=== PATIENT | female | born 1960 | race African-American/Black ===

== ENCOUNTER → 2017-05-09 | Outpatient (CLI) | payer OTHER ==
[~2017-05-09] MED LIST: ATOR10TA PO; BUPR150T15 PO; CALC-112 PO; ESTR0.5T PO; METF500T4 PO; MONT4GRA2 PO
--- NOTE | 2017-05-09 11:21 | RAD ---
Indication: Microscopic hematuria. Technique: Retroperitoneal ultrasound was performed. No comparison is available. Findings: Right kidney measures at least 11.4 cm in length and the left 11.2 cm. There is no hydronephrosis or renal mass. Bladder is normal in appearance without significant post void residual. Aorta is normal caliber. IVC is patent. Impression: Normal renal ultrasound.
== END | disposition home or self-care (01) ==
LOC: US 10:18
PROVIDERS: ATTEND Urology
DX: R31.29 Other microscopic hematuria (principal)
CPT/HCPCS: 76770

== ENCOUNTER 2018-03-14 21:30 | Emergency (ER) | payer OTHER ==
[~2018-03-14] VITALS: Ht 165.1 cm; Wt 79.4 kg
[~2018-03-14 21:30] MED LIST changes: +METF500T16 PO; -METF500T4 PO
[2018-03-14 22:18] LABS: BASO # 0.1 x10^3/uL (0.0-0.2); BASO % 1 % (0-3); EOS # 0.2 x10^3/uL (0.0-0.7); EOS % 3 % (0-3); HEMATOCRIT 41.1 % (36.0-47.0); LYMPH # 3.3 x10^3/uL (1.0-4.8); LYMPH % 54 % (24-48); MEAN CORPUSCULAR HEMOGLOBIN 30 pg (25-35); MEAN CORPUSCULAR HGB CONC 34 g/dL (31-37); MEAN CORPUSCULAR VOLUME 89 fL (79-100); MONO # 0.5 x10^3/uL (0.0-1.1); MONO % 9 % (0-9); NEUT # 2.1 x10^3uL (1.8-7.7); NEUT % 34 % (31-73); PLATELET COUNT 328 x10^3/uL (140-400); RED BLOOD COUNT 4.61 x10^6/uL (3.50-5.40); WHITE BLOOD COUNT 6.1 x10^3/uL (4.0-11.0)
[2018-03-14 22:29] LABS: ALBUMIN 3.8 g/dL (3.4-5.0); ALBUMIN/GLOBULIN RATIO 1.3 (1.0-1.7); CALCIUM 8.9 mg/dL (8.5-10.1); CREATININE 1.1 mg/dL (0.6-1.0); GFR 61.5; POTASSIUM 3.9 mmol/L (3.5-5.1); TOTAL BILIRUBIN 0.2 mg/dL (0.2-1.0); TOTAL PROTEIN 6.7 g/dL (6.4-8.2)
[2018-03-14] MEDS ORDERED: KETOROLAC 15 MG/ML VIAL. IV ONE (22:30)
[2018-03-14] MEDS ORDERED: FAMOTIDINE 20 MG/2 ML VIAL IVP ONE (23:30)
[2018-03-14] MEDS ORDERED: LIDO:MAALOX 1:1 20 ML SINGLE DOSE. PO ONE (23:30)
[2018-03-15] MEDS ORDERED: IOHEXOL 300 MG/ML 75 ML VIAL. IV ONE (00:30)
[2018-03-15] MEDS ORDERED: CONTRAST GIVEN MC PRN (00:30)
--- NOTE | 2018-03-15 01:44 | RAD ---
INDICATION: Omni 300 75cc: Left sided chest and abdomen pain COMPARISON: None. TECHNIQUE: Axial CT images obtained through the chest, abdomen and pelvis with contrast. Three-dimensional images processed of the chest per protocol One or more of the following individualized dose reduction techniques were utilized for this examination: 1. Automated exposure control; 2. Adjustment of the mA and/or kV according to patient size; 3. Use of iterative reconstruction technique. FINDINGS: Chest: No evidence of pneumothorax. Sub-4 mm right lung nodule. No focal airspace consolidation to suggest pneumonia. No thoracic aortic aneurysm. Degenerative changes of the spine. No central pulmonary embolus. Some limitation peripherally secondary to mild motion. Abdomen and pelvis: Abdominal aorta is not grossly aneurysmal. No intrahepatic bile duct dilation. Subcentimeter low-density liver lesion near hepatic dome, too small to characterize. Gallbladder partially contracted. No peripancreatic fluid collection. Spleen unremarkable. No left-sided hydronephrosis. Urinary bladder is partially distended. No right-sided hydronephrosis. No periappendiceal inflammation. No dilated loops of bowel to suggest obstruction. Degenerative changes spine. IMPRESSION: 1. No central pulmonary embolus. 2. Sub-4 mm right lung nodule. 3. No evidence of bowel obstruction or appendicitis. 4. Subcentimeter low-density lesion near hepatic dome which is too small to characterize. Commonly seen finding. Fleischner Society recommendations for solitary solid lung nodule follow up.: In a low risk patient: <6mm - No follow up required. 6-8mm - 6-[address], then CT at 18-24 months. >8mm - CT at 3 months, PET/CT or tissue sampling. In a high risk patient (history of smoking or other known risk factors): <6mm - Follow up CT at 12 months. 6-8mm - 6-[address], then CT at 18-24 months. >8mm - CT at 3 months, PET/CT or tissue sampling. Fleischner Society recommendations for multiple solid lung nodule follow up.: In a low risk patient: <6mm - No follow up required. 6-8mm - 3-[address], then CT at 18-24 months. >8mm - CT at 3-6 months, then at 18-24 months. PET/CT or tissue sampling based on most suspicious nodule. In a high risk patient (history of smoking or other known risk factors): <6mm - Follow up CT at 12 months. 6-8mm - 3-[address], then CT at 18-24 months. >8mm - CT at 3-6 months, PET/CT or tissue sampling option based on most suspicious nodule. Electronically signed by: Abdelrahman Ellis MD (03/15/2018 1:41 AM) [facility]
[2018-03-15 01:53] VITALS: BP 138/78
--- NOTE | 2018-03-15 01:58 | ED.ADGEN ---
Past History Past Medical History: No Pertinent History Past Surgical History: No Surgical History Alcohol Use: Occasionally Drug Use: None Adult General Chief Complaint Chief Complaint Left-sided chest pain HPI HPI Patient is a 37-year-old female with history of acid reflux and asthma who presents with left lower chest pain located under her left breast radiating to left shoulder and left arm. Pain is described as sharp and lasts for seconds at its timing occurs every 20-30 minutes. It is not as worse with deep breathing or movement. Patient does report associated nausea. Denies fever chills, sweats. No cough, sore throat. No history of CAD, hypertension, dyslipidemia or diabetes. Patient is a nonsmoker. No family history of early heart disease. Denies abdominal pain, constipation diarrhea bloody stools. No other acute symptoms or complaints.[] Review of Systems Review of Systems Review symptoms as per history of present illness. All other review symptoms are negative. All other systems were reviewed and found to be within normal limits, except as documented in this note. Current Medications Current Medications Current Medications Medications (Trade) Dose Ordered Sig/Izzy Start Time Stop Time Status Last Admin Dose Admin Famotidine (Pepcid Vial) 20 mg 1X ONCE 03/14/18 23:30 03/14/18 23:32 DC 03/14/18 23:38 20 MG Fentanyl Citrate (Fentanyl 2ml Vial) 50 mcg 1X ONCE 03/15/18 01:15 03/15/18 01:19 DC Info (Do NOT chart on this entry -- for MONITORING) 1 each PRN DAILY PRN 03/15/18 00:30 03/17/18 00:29 Iohexol (Omnipaque 300 Mg/ml) 75 ml 1X ONCE 03/15/18 00:30 03/15/18 00:31 DC 03/15/18 00:27 75 ML Ketorolac Tromethamine (Toradol 15mg Vial) 15 mg 1X ONCE 03/14/18 22:30 03/14/18 22:32 DC 03/14/18 22:30 15 MG Multi-Ingredient Mouthwash/Gargle (Gi Cocktail) 20 ml 1X ONCE 03/14/18 23:30 03/14/18 23:32 DC 03/14/18 23:38 20 ML Allergies Allergies Allergies Coded Allergies Type Severity Reaction Last Updated Verified amoxicillin Allergy Unknown 01/22/16 No clavulanic acid Allergy Unknown 01/22/16 No tramadol Allergy Unknown 01/22/16 No Uncoded Allergies Type Severity Reaction Last Updated Verified ASPRIN Allergy Unknown 01/22/16 ZOFRAN Allergy Unknown 01/22/16 Physical Exam Physical Exam Constitutional: Well developed, well nourished, no acute distress, non-toxic appearance. [] HENT: Normocephalic, atraumatic, bilateral external ears normal, oropharynx moist, no oral exudates, nose normal. [] Eyes: PERRLA, EOMI, conjunctiva normal, no discharge. [] Neck: Normal range of motion, no tenderness, supple, no stridor. [] Cardiovascular:Heart rate regular rhythm, no murmur [] Lungs & Thorax: Bilateral breath sounds clear to auscultation [] Abdomen: Bowel sounds normal, soft, no tenderness. [] Skin: Warm, dry, no erythema, no rash. [] Back: No tenderness, no CVA tenderness. [] Extremities: No tenderness, no cyanosis, no clubbing, ROM intact, no edema. [] Neurologic: Alert and oriented X 3, normal motor function, normal sensory function, no focal deficits noted. [] Psychologic: Affect normal, judgement normal, mood normal. [] Current Patient Data Vital Signs Vital Signs Date Time Temp Pulse Resp B/P (MAP) Pulse Ox O2 Delivery O2 Flow Rate FiO2 03/15/18 00:43 52 20 135/85 (102) 100 Room Air 03/14/18 21:46 97.9 Lab Results Laboratory Tests Test 03/14/18 22:03 03/14/18 22:08 03/14/18 23:35 White Blood Count 6.1 x10^3/uL (4.0-11.0) Red Blood Count 4.61 x10^6/uL (3.50-5.40) Hemoglobin 14.0 g/dL (12.0-15.5) Hematocrit 41.1 % (36.0-47.0) Mean Corpuscular Volume 89 fL (79-100) Mean Corpuscular Hemoglobin 30 pg (25-35) Mean Corpuscular Hemoglobin Concent 34 g/dL (31-37) Red Cell Distribution Width 13.0 % (11.5-14.5) Platelet Count 328 x10^3/uL (140-400) Neutrophils (%) (Auto) 34 % (31-73) Lymphocytes (%) (Auto) 54 % (24-48) H Monocytes (%) (Auto) 9 % (0-9) Eosinophils (%) (Auto) 3 % (0-3) Basophils (%) (Auto) 1 % (0-3) Neutrophils # (Auto) 2.1 x10^3uL (1.8-7.7) Lymphocytes # (Auto) 3.3 x10^3/uL (1.0-4.8) Monocytes # (Auto) 0.5 x10^3/uL (0.0-1.1) Eosinophils # (Auto) 0.2 x10^3/uL (0.0-0.7) Basophils # (Auto) 0.1 x10^3/uL (0.0-0.2) D-Dimer (Xiomara) 0.23 mg/L (0.00-0.50) Sodium Level 141 mmol/L (136-145) Potassium Level 3.9 mmol/L (3.5-5.1) Chloride Level 108 mmol/L (98-107) H Carbon Dioxide Level 24 mmol/L (21-32) Anion Gap 9 (6-14) Blood Urea Nitrogen 16 mg/dL (7-20) Creatinine 1.1 mg/dL (0.6-1.0) H Estimated GFR (Cockcroft-Gault) 61.5 BUN/Creatinine Ratio 15 (6-20) Glucose Level 134 mg/dL (70-99) H Calcium Level 8.9 mg/dL (8.5-10.1) Total Bilirubin 0.2 mg/dL (0.2-1.0) Aspartate Amino Transferase (AST) 20 U/L (15-37) Alanine Aminotransferase (ALT) 33 U/L (14-59) Alkaline Phosphatase 89 U/L (46-116) Troponin I Quantitative < 0.017 ng/mL (0-0.055) < 0.017 ng/mL (0-0.055) Total Protein 6.7 g/dL (6.4-8.2) Albumin 3.8 g/dL (3.4-5.0) Albumin/Globulin Ratio 1.3 (1.0-1.7) Lipase 109 U/L (73-393) EKG EKG [EKG: No acute disease on preliminary ED review.] Radiology/Procedures Radiology/Procedures [CT chest/CT abdomen pelvis: No acute disease per radiology report] Course & Med Decision Making Course & Med Decision Making Pertinent Labs and Imaging studies reviewed. (See chart for details) [Patient reports some relief with Pepcid and GI cocktail. EKG, repeat troponin nondiagnostic. Chest pains nonexertional. She does have history of severe reflux disease and is taking Protonix. Will increase Protonix, take Tylenol for pain and follow-up with PCP for reevaluation. Return precautions reviewed. Patient verbalizes understanding agreement discharge instructions prior to departure.] Final Impression Final Impression [1. Chest pain 2. Abdominal pain] Dragon Disclaimer Dragon Disclaimer This electronic medical record was generated, in whole or in part, using a voice recognition dictation system. NATE BEVERLY DO Mar 15, 2018 01:57
--- NOTE | 2018-03-15 05:43 | EKG ---
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
--- NOTE | 2018-03-15 08:15 | RAD ---
CHEST AP ONLY INDICATION: Chest pain COMPARISON: CT chest dated 01/22/2016 FINDINGS: Normal lung volume. No focal consolidation. Remote granulomatous disease. Normal pulmonary vasculature. No pleural effusion or pneumothorax. The cardiomediastinal silhouette and great vessels are normal. No acute osseous abnormality. IMPRESSION: No acute cardiopulmonary process. Electronically signed by: Daniel Aquino MD (03/15/2018 8:12 AM) [facility]
== END 2018-03-15 02:08 | disposition home or self-care (01) ==
LOC: ER 21:30
DX: R07.89 Other chest pain (principal); K21.9 Gastro-esophageal reflux disease without esophagitis; J45.909 Unspecified asthma, uncomplicated; Z88.1 Allergy status to other antibiotic agents; Z88.6 Allergy status to analgesic agent
CPT/HCPCS: 36415; 71045; 71275; 74177; 80053; 83690; 84484; 85025; 85379; 93005; 96374; 96375; 99285; J1885; Q9967; S0028

== ENCOUNTER 2020-01-31 17:52 | Observation (INO) | payer OTHER ==
[~2020-01-31] VITALS: Ht 165.1 cm; Wt 81.2 kg
[2020-01-31] MEDS ORDERED: ASPIRIN CHEWABLE 81 MG TABLET. ONE (18:09)
[2020-01-31] MEDS ORDERED: ONDANSETRON ODT 4 MG TAB.RAPDIS ONE (18:09)
[2020-01-31] MEDS ORDERED: NITROGLYCERIN SUBLINGUAL 0.4 MG BOTTLE OF 25. SL PRN ×2 (18:15→19:45)
--- NOTE | 2020-01-31 18:19 | PHYS DOC ---
Past History Past Medical History: Hypertension Past Surgical History: No Surgical History Smoking: Non-smoker Alcohol Use: Occasionally Drug Use: None Adult General Chief Complaint Chief Complaint: CHEST PAIN HPI HPI Patient is a 59-year-old female who presents for chest pain. Patient reports left arm paresthesias and numbness x3 days. Reports onset of substernal chest pain which is 8 out of 10 in severity and radiates to left upper extremity and neck 2 hours prior to arrival while visiting in hospital. She denies any history of CAD, no tobacco use but admits increased stress as is currently hospitalized at [facility]. She has never felt anything like this before. Associated symptoms include neck pain, lightheadedness, shortness of breath, and nausea. Patient denies any fever, COVID-19 contact, constitutional symptoms, hemoptysis, history of blood clots, calf tenderness, or long distance travel. Patient does admit use of exogenous estrogen and living a sedentary lifestyle Review of Systems Review of Systems Fourteen body systems of review of systems have been reviewed. See HPI for pertinent positives and negative responses, other augustin all other systems are negative, non-pertinent or non-contributory Current Medications Current Medications Current Medications Medications (Trade) Dose Ordered Sig/Izzy Start Time Stop Time Status Last Admin Dose Admin Aspirin (Aspirin Chewable) 81 mg STK-MED ONCE 01/31/20 18:09 01/31/20 18:10 DC Ondansetron HCl (Zofran Odt) 4 mg STK-MED ONCE 01/31/20 18:09 01/31/20 18:10 DC Allergies Allergies Allergies Coded Allergies Type Severity Reaction Last Updated Verified amoxicillin Allergy Unknown 01/22/16 No clavulanic acid Allergy Unknown 01/22/16 No tramadol Allergy Unknown 01/22/16 No Uncoded Allergies Type Severity Reaction Last Updated Verified ASPRIN Allergy Unknown 01/22/16 ZOFRAN Allergy Unknown 01/22/16 Physical Exam Physical Exam Constitutional: Well developed, well nourished, moderate distress, non-toxic appearance. HENT: Normocephalic, atraumatic, bilateral external ears normal, oropharynx moist, no oral exudates, nose normal. Eyes: PERRLA, EOMI, conjunctiva normal, no discharge. Neck: Normal range of motion, no tenderness, supple, no stridor. Cardiovascular: Heart rate regular, sinus rhythm, no murmurs rubs or gallops Lungs & Thorax: Bilateral breath sounds clear to auscultation Abdomen: Bowel sounds normal, soft, no tenderness, no masses, no pulsatile masses. Nonsurgical abdomen, no peritoneal signs Skin: Warm, dry, no erythema, no rash. Back: No tenderness, no CVA tenderness. Extremities: No tenderness, no cyanosis, no clubbing, ROM intact, no edema. Neurologic: Alert and oriented X 3, grossly normal motor & sensory function, no focal deficits noted. Psychologic: Affect normal, judgement normal, anxious mood Current Patient Data Vital Signs Vital Signs Date Time Temp Pulse Resp B/P (MAP) Pulse Ox O2 Delivery O2 Flow Rate FiO2 01/31/20 19:30 18 Room Air 01/31/20 19:23 98.1 86 179/105 (129) 99 Lab Results Laboratory Tests Test 01/31/20 18:15 White Blood Count 7.1 x10^3/uL (4.0-11.0) Red Blood Count 4.33 x10^6/uL (3.50-5.40) Hemoglobin 13.2 g/dL (12.0-15.5) Hematocrit 38.8 % (36.0-47.0) Mean Corpuscular Volume 90 fL (79-100) Mean Corpuscular Hemoglobin 30 pg (25-35) Mean Corpuscular Hemoglobin Concent 34 g/dL (31-37) Red Cell Distribution Width 12.7 % (11.5-14.5) Platelet Count 330 x10^3/uL (140-400) Neutrophils (%) (Auto) 36 % (31-73) Lymphocytes (%) (Auto) 53 % (24-48) Monocytes (%) (Auto) 8 % (0-9) Eosinophils (%) (Auto) 2 % (0-3) Basophils (%) (Auto) 1 % (0-3) Neutrophils # (Auto) 2.5 x10^3uL (1.8-7.7) Lymphocytes # (Auto) 3.8 x10^3/uL (1.0-4.8) Monocytes # (Auto) 0.6 x10^3/uL (0.0-1.1) Eosinophils # (Auto) 0.2 x10^3/uL (0.0-0.7) Basophils # (Auto) 0.1 x10^3/uL (0.0-0.2) Prothrombin Time 9.9 SEC (9.4-11.4) Prothromb Time International Ratio 1.0 (0.9-1.1) Activated Partial Thromboplast Time 24 SEC (23-33) D-Dimer (Xiomara) 0.30 mg/L (0.00-0.50) Sodium Level 145 mmol/L (136-145) Potassium Level 3.9 mmol/L (3.5-5.1) Chloride Level 109 mmol/L (98-107) Carbon Dioxide Level 26 mmol/L (21-32) Anion Gap 10 (6-14) Blood Urea Nitrogen 16 mg/dL (7-20) Creatinine 0.9 mg/dL (0.6-1.0) Estimated GFR (Cockcroft-Gault) 77.0 BUN/Creatinine Ratio 18 (6-20) Glucose Level 109 mg/dL (70-99) Calcium Level 9.2 mg/dL (8.5-10.1) Magnesium Level 1.8 mg/dL (1.8-2.4) Total Bilirubin 0.2 mg/dL (0.2-1.0) Aspartate Amino Transf (AST/SGOT) 23 U/L (15-37) Alanine Aminotransferase (ALT/SGPT) 43 U/L (14-59) Alkaline Phosphatase 94 U/L (46-116) Creatine Kinase 166 U/L (26-192) Troponin I Quantitative 0.028 ng/mL (0-0.055) KS-Mys-Z-Type Natriuretic Peptide 216 pg/mL (0-124) Total Protein 6.8 g/dL (6.4-8.2) Albumin 3.7 g/dL (3.4-5.0) Albumin/Globulin Ratio 1.2 (1.0-1.7) Lipase 71 U/L (73-393) EKG EKG EKG ordered and interpreted by myself at 1815 hrs. as sinus rhythm at 79 bpm, prolonged QTC at 471 otherwise intervals unremarkable, no axis deviation, T wave inversions in inferior leads II, aVF, and anterolateral leads V3 through V6. No prior EKG to compare to Radiology/Procedures Radiology/Procedures PROCEDURE: PORTABLE CHEST 1V PORTABLE CHEST 1V 01/31/2020 6:14 PM INDICATION: Chest pain COMPARISON: 03/14/2018 TECHNIQUE: Portable frontal view of the chest is provided. FINDINGS: The cardiomediastinal silhouette is within normal limits. Lungs are clear. There are no significant pleural effusions. There is no pulmonary vascular congestion. No pneumothorax. No suspicious osseous abnormality. IMPRESSION: There is no acute cardiopulmonary process. Electronically signed by: Lauren Plascencia MD (01/31/2020 6:38 PM) [facility] Course & Med Decision Making Course & Med Decision Making Ambulatory patient seen on immediate ER arrival Airway patent, breathing unlabored, patient hypertensive otherwise remaining vitals unremarkable. IV access obtained Calm presence of history and physical exam obtained with subsequent ordering of diagnostic studies A total of x3 sublingual nitro administered with improvement in pain from 8-->5/10 in severity. 4 mg morphine subsequently administered with further relief in symptoms Discussed ER visit, grossly non-concerning for any emergent or surgical pathology but patient has high risk for potential cardiac events, I recommended admission for further cardiac monitoring and further diagnostic cardiac testing, patient amenable On-call hospitalist, Dr. Mcintosh, contacted and case discussed. He was agreeable to admission with cardiology consultation and likely nuclear stress test to be formed tomorrow morning I updated patient of this decision, she was amenable All questions and concerns addressed prior to ER departure to [facility] for further medical observation and management Dragon Disclaimer Dragon Disclaimer This electronic medical record was generated, in whole or in part, using a voice recognition dictation system. The HEART Score for CP Pts HEART Score for Chest Pain: HEART Score for Chest Pain Response (Comments) Value History Moderately Suspicious [address] Depression 2 Age >45 - < 65 1 Risk Factors 1 or 2 Risk Factors 1 Troponin < Normal Limit 0 Total 5 Risk Factors: Risk Factors: DM, Current or recent (<one month) smoker, HTN, HLP, family history of CAD, obesity. Risk Scores: Score 0 - 3: 2.5% MACE over next 6 weeks - Discharge Home Score 4 - 6: 20.3% MACE over next 6 weeks - Admit for Clinical Observation Score 7 - 10: 72.7% MACE over next 6 weeks - Early Invasive Strategies PERC Rule for PE PERC Rule for PE Response (Comments) Value Age > 50: Yes 1 HR > 100: No 0 Sa02 on room air <95%: No 0 Unilateral leg swelling: No 0 Hemoptysis: No 0 Recent surgery or trauma: No 0 Prior PE or DVT: No 0 Hormone use: Yes (Reports being off this for past 3 months) 1 Total 2 Departure Departure: Impression: Primary Impression: Chest pain, rule out acute myocardial infarction Additional Impression: HTN (hypertension) Disposition: 09 ADMITTED INPATIENT Admitting Physician: Dwayne Mcintosh Condition: STABLE Referrals: JOSE MANUEL ACHARYA QUALITY CONTROLLER (PCP) Justification of Admission: Justification of Admission: Justification of Admission Dx: Yes (High risk chest pain heart score greater than 3, EKG abnormalities) Problem Qualifiers SUNNY HUOSE DO Jan 31, 2020 18:19
--- NOTE | 2020-01-31 18:25 | EKG ---
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
[2020-01-31 18:39] LABS: BASO # 0.1 x10^3/uL (0.0-0.2); BASO % 1 % (0-3); EOS # 0.2 x10^3/uL (0.0-0.7); EOS % 2 % (0-3); HEMATOCRIT 38.8 % (36.0-47.0); HEMOGLOBIN 13.2 g/dL (12.0-15.5); LYMPH # 3.8 x10^3/uL (1.0-4.8); LYMPH % 53 % (24-48); MEAN CORPUSCULAR HEMOGLOBIN 30 pg (25-35); MEAN CORPUSCULAR HGB CONC 34 g/dL (31-37); MEAN CORPUSCULAR VOLUME 90 fL (79-100); MONO # 0.6 x10^3/uL (0.0-1.1); MONO % 8 % (0-9); NEUT # 2.5 x10^3uL (1.8-7.7); NEUT % 36 % (31-73); PLATELET COUNT 330 x10^3/uL (140-400); RED BLOOD COUNT 4.33 x10^6/uL (3.50-5.40); RED CELL DISTRIBUTION WIDTH 12.7 % (11.5-14.5); WHITE BLOOD COUNT 7.1 x10^3/uL (4.0-11.0)
--- NOTE | 2020-01-31 18:41 | RAD ---
PORTABLE CHEST 1V 01/31/2020 6:14 PM INDICATION: Chest pain COMPARISON: 03/14/2018 TECHNIQUE: Portable frontal view of the chest is provided. FINDINGS: The cardiomediastinal silhouette is within normal limits. Lungs are clear. There are no significant pleural effusions. There is no pulmonary vascular congestion. No pneumothorax. No suspicious osseous abnormality. IMPRESSION: There is no acute cardiopulmonary process. Electronically signed by: Lauren Plascencia MD (01/31/2020 6:38 PM) [facility]
[2020-01-31 18:47] LABS: CALCIUM 9.2 mg/dL (8.5-10.1); CREATININE 0.9 mg/dL (0.6-1.0); POTASSIUM 3.9 mmol/L (3.5-5.1)
[2020-01-31 18:58] LABS: ALBUMIN 3.7 g/dL (3.4-5.0); ALBUMIN/GLOBULIN RATIO 1.2 (1.0-1.7); MAGNESIUM 1.8 mg/dL (1.8-2.4); TOTAL BILIRUBIN 0.2 mg/dL (0.2-1.0); TOTAL PROTEIN 6.8 g/dL (6.4-8.2)
[2020-01-31] MEDS ORDERED: MORPHINE SULFATE 4 MG/ML DISP.SYRIN. IV ONE (19:45)
[2020-01-31] MEDS ORDERED: ACETAMINOPHEN 325 MG TABLET PO PRN (19:45)
[2020-01-31] MEDS ORDERED: METOPROLOL TART IMMED RELEASE 25 MG TABLET ONE (20:21)
--- NOTE | 2020-01-31 20:43 | NUR ---
Admission: The patient, SURENDRA DELAROSA, 59 y/o, F admitted by DIANA MCINTOSH MD, was given written information regarding hospital policies, unit procedures and contact persons. Pt arrived to room 121 via gurney, accompanied by [facility] and ED staff. Pt admitted to telemetry, observation status for Dx: CP, HTN. Pt A/Ox3, ambulatory. Pt placed on tele, showing SR with rate in the 70's, inverted T-waves noted. Initial troponin negative, serials ordered. Pt reports chest pain began 3 days ago accompanied by left arm numbness and tingling, worse today with substernal CP rated 8:10. Pt received nitro x3 and morphine 4mg IVP while in ED and now reports pain has improved to 4:10. Pt also reports recent life stress related to her being currently hospitalized at [facility]. Dr. Mcintosh notified of pt status, home meds reconciled. Will consult cardiology in AM. Discussed POC with pt, V/U. Call light in reach. Valuables were checked and logged. Belongings were left in room with pt.
[2020-01-31 20:45] VITALS: BP 141/86
[2020-01-31] MEDS ORDERED: METOPROLOL TART IMMED RELEASE 25 MG TABLET PO ONE (21:00)
[2020-01-31] MEDS: PATCH REMOVAL. MC SCH (21:00)
[2020-01-31] MEDS ORDERED: DICLOFENAC SODIUM 1% TOPICAL GEL 100GM TUBE. TP PRN (21:30)
[2020-01-31] MEDS ORDERED: SUMAtriptan SUCCINATE 50 MG TABLET PO PRN (21:30)
[2020-01-31] MEDS ORDERED: MONT10TA80 PO (21:31)
[2020-01-31] MEDS ORDERED: TOPI100T8 PO (21:31)
[2020-01-31] MEDS ORDERED: RABE20TA26 PO (21:31)
[2020-01-31] MEDS ORDERED: BUPR100T8 PO (21:31)
[2020-01-31] MEDS ORDERED: DICL100G18 TP (21:31)
[2020-01-31] MEDS ORDERED: LORA10TA3 PO (21:31)
[2020-01-31] MEDS ORDERED: SUMA100T3 PO (21:31)
[2020-01-31] MEDS ORDERED: ATOR40TA59 PO (21:31)
[2020-01-31] MEDS ORDERED: TRAZ-120 PO (21:31)
[2020-01-31] MEDS ORDERED: MIRA50TA PO (21:31)
[2020-01-31] MEDS ORDERED: ATORVASTATIN CALCIUM 20 MG TABLET PO SCH (21:54)
[2020-01-31] MEDS ORDERED: MONTELUKAST 10 MG TABLET. PO SCH (21:54)
[2020-01-31] MEDS ORDERED: metFORMIN 500 MG TABLET PO SCH (21:54)
[2020-01-31] MEDS ORDERED: traZODone 50 MG TABLET. PO SCH (21:55)
[2020-01-31] MEDS: TOPIRAMATE 100 MG TABLET. PO SCH (22:07)
[2020-01-31] MEDS: MORPHINE SULFATE 2 MG/ML DISP.SYRIN. IVP PRN (22:15)
[2020-01-31] MEDS ORDERED: DIPH25CA58 PO (22:26)
[2020-01-31] MEDS ORDERED: diphenhydrAMINE HCL 25 MG CAPSULE PO PRN (22:30)
[2020-01-31 23:34] VITALS: BP 114/66
--- NOTE | 2020-01-31 23:35 | NUR ---
Pt normally wears CPAP at night for sleep apnea, but did not bring machine from home. Placed on O2 at 2L via NC for HS.
--- NOTE | 2020-02-01 04:41 | NUR ---
Cardiology consult called to Miriam Fairbanks/[place] with answering service.
[2020-02-01 06:05] VITALS: BP 99/66
[2020-02-01] MEDS ORDERED: PANTOPRAZOLE 40 MG TABLET. PO SCH (07:30)
[2020-02-01] MEDS ORDERED: buPROPion SR 100 MG TABLET.SA. PO SCH (08:00)
--- NOTE | 2020-02-01 08:42 | PDOC2 ---
HERMILA GOLDSTEIN PALLET REPAIRER 02/01/20 0842: CARDIAC CONSULT DATE OF CONSULT DOS: DATE: 02/01/20 TIME: 08:37 REASON FOR CONSULT Reason for Consult Chest pain, HTN REFERRING PHYSICIAN Referring Physician Dr. Mcintosh SOURCE Source: Chart review, Patient HPI History of Present Illness This is a 59 yo female who presented secondary to chest pain. Patient reports she began having left arm pain while walking for the last week. Yesterday, pain radiated up into her left chest and up into her left jaw and neck. Describes as aching, pressure. Was associated with nausea. No SOA, dizziness, or diaphoresis. Reports she routinely walks .Has been more fatigued recently and has had trouble walking up hills. Of note, has been hospitalized recently and she has been under a lot of stress. PAST MEDICAL HISTORY Cardiovascular: HTN, hyperipidemia Pulmonary: Other (DARYA) GI: GERD Psych: Anxiety, Depression Endocrine: Diabetes PAST SURGICAL HISTORY Past Surgical History: No pertinent history FAMILY HISTORY Family History: Coronary Artery Disease (both mother and sister with CABG in early 50's ) CURRENT MEDICATIONS Current Medications Current Medications Aspirin (Aspirin Chewable) 81 mg STK-MED ONCE .ROUTE ; Start 01/31/20 at 18:09; Stop 01/31/20 at 18:10; Status DC Ondansetron HCl (Zofran Odt) 4 mg STK-MED ONCE .ROUTE ; Start 01/31/20 at 18:09; Stop 01/31/20 at 18:10; Status DC Nitroglycerin (Nitrostat) 0.4 mg PRN Q5MIN PRN SL CP RATING > 1/10 Last administered on 01/31/20at 19:02; Start 01/31/20 at 18:15; Stop 01/31/20 at 21:53; Status DC Morphine Sulfate (Morphine 4mg Syringe) 4 mg 1X ONCE IV Last administered on 01/31/20at 19:30; Start 01/31/20 at 19:45; Stop 01/31/20 at 19:46; Status DC Morphine Sulfate (Morphine 2mg Syringe) 2 mg PRN Q2HR PRN IVP PAIN Last administered on 01/31/20at 22:15; Start 01/31/20 at 19:45; Stop 02/01/20 at 19:44 Acetaminophen (Tylenol) 650 mg PRN Q4HRS PRN PO FEVER > 100.3'F; Start 01/31/20 at 19:45; Stop 02/01/20 at 19:44 Nitroglycerin (Nitrostat) 0.4 mg PRN Q5MIN PRN SL CHEST PAIN; Start 01/31/20 at 19:45; Stop 02/01/20 at 19:44 Lidocaine (Lidoderm) 1 patch DAILY TD ; Start 02/01/20 at 09:00 Miscellaneous (Lidoderm Patch Removal) 1 ea QHS MC ; Start 01/31/20 at 21:00 Metoprolol Tartrate (Lopressor) 12.5 mg 1X ONCE PO Last administered on 01/31/20at 20:25; Start 01/31/20 at 21:00; Stop 01/31/20 at 21:01; Status DC Metoprolol Tartrate (Lopressor) 25 mg STK-MED ONCE .ROUTE ; Start 01/31/20 at 20:21; Stop 01/31/20 at 20:22; Status DC Bupropion HCl (Wellbutrin Sr) 100 mg DAILYWBKFT PO ; Start 02/01/20 at 08:00 Diclofenac Sodium (Voltaren) 100 rober PRN QID PRN TP MUSCLE PAIN; Start 01/31/20 at 21:30 Metformin HCl (Glucophage) 250 mg HS PO Last administered on 01/31/20at 22:07; Start 01/31/20 at 21:54 Montelukast Sodium (Singulair) 10 mg HS PO Last administered on 01/31/20at 22:07; Start 01/31/20 at 21:54 Topiramate (Topamax) 100 mg BID PO Last administered on 01/31/20at 22:07; Start 01/31/20 at 21:54 Trazodone HCl (Desyrel) 200 mg HS PO Last administered on 01/31/20at 22:07; Start 01/31/20 at 21:55 Atorvastatin Calcium (Lipitor) 40 mg QHS PO Last administered on 01/31/20at 22:07; Start 01/31/20 at 21:54 Cetirizine HCl (ZyrTEC) 10 mg DAILY PO ; Start 02/01/20 at 09:00 Non-Formulary Medication (Mirabegron (Myrbetriq)) 50 mg HS PO ; Start 02/01/20 at 21:00; Status UNV Pantoprazole Sodium (Protonix) 40 mg DAILYAC PO ; Start 02/01/20 at 07:30 Sumatriptan Succinate (Imitrex) 100 mg PRN BID PRN PO MIGRAINE HEADACHE; Start 01/31/20 at 21:30 Diphenhydramine HCl (Benadryl) 25 mg PRN Q6HRS PRN PO ITCHING Last administered on 01/31/20at 22:32; Start 01/31/20 at 22:30 Active Scripts Active Reported Benadryl (Diphenhydramine Hcl) 25 Mg Capsule 25 Mg PO PRN Q6HRS PRN Voltaren (Diclofenac Sodium) 100 Gm Gel..gram. 100 Gm TP PRN QID PRN Imitrex (Sumatriptan Succinate) 100 Mg Tablet 100 Mg PO PRN BID PRN Trazodone Hcl 50 Mg Tablet 200 Mg PO HS Topiramate 100 Mg Tablet 100 Mg PO BID Rabeprazole Sodium 20 Mg Tablet.dr 20 Mg PO DAILY Myrbetriq (Mirabegron) 50 Mg Tab.er.24h 50 Mg PO HS Loratadine 10 Mg Tablet 1 Tab PO DAILY Singulair Tablet (Montelukast Sodium) 10 Mg Tablet 10 Mg PO HS Atorvastatin Calcium 40 Mg Tablet 40 Mg PO QHS Bupropion Hcl Sr (Bupropion Hcl) 100 Mg Tablet.er 1 Tab PO DAILYWBKFT Metformin Hcl 500 Mg Tablet 0.5 Tab PO HS ALLERGIES Allergies: Coded Allergies: aspirin (Verified Allergy, Intermediate, 01/31/20) ondansetron (Verified Allergy, Intermediate, 01/31/20) amoxicillin (Unverified Allergy, Unknown, 01/22/16) clavulanic acid (Unverified Allergy, Unknown, 01/22/16) tramadol (Unverified Allergy, Unknown, 01/22/16) ROS Review of Systems 14 point ROS conducted with pertinent positives noted above in HPI PHYSICAL EXAM General: Alert, Oriented X3, Cooperative, No acute distress HEENT: Atraumatic Lungs: Clear to auscultation Heart: Regular rate Abdomen: Soft, No tenderness Extremities: No edema, Normal pulses Skin: No breakdown Neuro: Normal speech, Normal tone, Sensation intact Psych/Mental Status: Mental status NL, Mood NL MUSCULOSKELETAL: Osteoarthritic changes both hands VITALS Vital Signs Vital Signs Date Time Temp Pulse Resp B/P (MAP) Pulse Ox O2 Delivery O2 Flow Rate FiO2 02/01/20 06:05 97.7 63 18 99/66 (77) 96 Nasal Cannula 2.0 LABS LABS Laboratory Tests Test 01/31/20 18:15 01/31/20 22:36 02/01/20 02:40 White Blood Count 7.1 x10^3/uL (4.0-11.0) Red Blood Count 4.33 x10^6/uL (3.50-5.40) Hemoglobin 13.2 g/dL (12.0-15.5) Hematocrit 38.8 % (36.0-47.0) Mean Corpuscular Volume 90 fL (79-100) Mean Corpuscular Hemoglobin 30 pg (25-35) Mean Corpuscular Hemoglobin Concent 34 g/dL (31-37) Red Cell Distribution Width 12.7 % (11.5-14.5) Platelet Count 330 x10^3/uL (140-400) Neutrophils (%) (Auto) 36 % (31-73) Lymphocytes (%) (Auto) 53 % (24-48) Monocytes (%) (Auto) 8 % (0-9) Eosinophils (%) (Auto) 2 % (0-3) Basophils (%) (Auto) 1 % (0-3) Neutrophils # (Auto) 2.5 x10^3uL (1.8-7.7) Lymphocytes # (Auto) 3.8 x10^3/uL (1.0-4.8) Monocytes # (Auto) 0.6 x10^3/uL (0.0-1.1) Eosinophils # (Auto) 0.2 x10^3/uL (0.0-0.7) Basophils # (Auto) 0.1 x10^3/uL (0.0-0.2) Prothrombin Time 9.9 SEC (9.4-11.4) Prothromb Time International Ratio 1.0 (0.9-1.1) Activated Partial Thromboplast Time 24 SEC (23-33) D-Dimer (Xiomara) 0.30 mg/L (0.00-0.50) Sodium Level 145 mmol/L (136-145) Potassium Level 3.9 mmol/L (3.5-5.1) Chloride Level 109 mmol/L (98-107) Carbon Dioxide Level 26 mmol/L (21-32) Anion Gap 10 (6-14) Blood Urea Nitrogen 16 mg/dL (7-20) Creatinine 0.9 mg/dL (0.6-1.0) Estimated GFR (Cockcroft-Gault) 77.0 BUN/Creatinine Ratio 18 (6-20) Glucose Level 109 mg/dL (70-99) Calcium Level 9.2 mg/dL (8.5-10.1) Magnesium Level 1.8 mg/dL (1.8-2.4) Total Bilirubin 0.2 mg/dL (0.2-1.0) Aspartate Amino Transf (AST/SGOT) 23 U/L (15-37) Alanine Aminotransferase (ALT/SGPT) 43 U/L (14-59) Alkaline Phosphatase 94 U/L (46-116) Creatine Kinase 166 U/L (26-192) Troponin I Quantitative 0.028 ng/mL (0-0.055) < 0.017 ng/mL (0-0.055) < 0.017 ng/mL (0-0.055) GU-Tox-R-Type Natriuretic Peptide 216 pg/mL (0-124) Total Protein 6.8 g/dL (6.4-8.2) Albumin 3.7 g/dL (3.4-5.0) Albumin/Globulin Ratio 1.2 (1.0-1.7) Lipase 71 U/L (73-393) ASSESSMENT/PLAN Assessment/Plan 1. Chest pain, typical features; AMI ruled out. Possible stress induced, but cannot r/o underling obstructive disease 2. Accelerated hypertension; now controlled 3. Hyperlipidemia; statin 4. DARYA 5. Depression, anxiety; increase stress recently with hospitalized 6. Family h/o premature CAD Recommendations ASA, statin Lipids Echo to assess LV systolic function Will need further ischemic evaluation given significant risk factors and symptomatolgy. Further risk stratification with MPI versus definitive evaluation with LHC discussed. Patient would prefer definitive ischemic evaluation with cardiac catheterization. R/b/a discussed with patient and she is agreeable to proceed. Will transfer to [facility] for cath this afternoon Keep NPO LILIAN PAYNE MD 02/01/20 1712: CARDIAC CONSULT ASSESSMENT/PLAN Assessment/Plan Patient seen and examined. 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 Cath w/o significant disease. Thanks HERMILA GOLDSTEIN APRN Feb 01, 2020 08:42 LILIAN PAYNE MD Feb 01, 2020 18:32
[2020-02-01] MEDS ORDERED: LIDOCAINE (700MG/PATCH) PATCH. TD SCH (09:00)
[2020-02-01] MEDS ORDERED: CETIRIZINE HCL 10 MG TABLET PO SCH (09:00)
--- NOTE | 2020-02-01 09:15 | HP ---
ADMIT DATE: 01/31/2020 ATTENDING PHYSICIAN: Dr. Breaux. CHIEF COMPLAINT: Chest pain. HISTORY OF PRESENT ILLNESS: The patient is a 59-year-old female presented to the ED with new onset of localized chest pain, substernal in nature. She also reports left arm numbness and paresthesias for the last 3 days, substernal chest pain, rated 8/10 in severity. She is under a lot of stress with her being ill. He had a heart attack and stroke 3 weeks ago. Currently, he is hospitalized at [facility]. She is a nonsmoker, but she has a strong family history of premature heart disease. Both her mom and her sister had heart attacks before age 50. She has no COVID symptoms. No exposure. She denied any palpitations. She does have neck pain, lightheadedness, some shortness of breath and nausea related to her stress. She had an initial EKG, which is nondiagnostic and nonspecific ST-T wave changes. Chest x-ray was clear. The first set of cardiac enzymes were negative. She is admitted for further evaluation. She has seen a television cameraman at [facility]. She could not tell me whether she has had a regular nuclear medicine stress test. She admits to having a walking treadmill stress test several years ago. Her risk factors does not include smoking. There is a history of hypertension. She is not diabetic. FAMILY HISTORY: As noted. ALLERGIES: AMOXICILLIN, ASPIRIN, CLAVULANIC ACID, ZOFRAN, and TRAMADOL. Exact reactions are unclear. CURRENT MEDICINES: Reviewed. She was taking Lipitor, bupropion, Voltaren gel, Benadryl, loratadine, metformin 250 as a prophylactic dose, Myrbetriq, Singulair, Protonix, Imitrex p.r.n., topiramate and trazodone 200 mg at bedtime. She is also [facility]. FAMILY HISTORY: As noted, mom and sister had heart disease, heart attacks before the age of 50. She is . Her children are grown. REVIEW OF SYSTEMS: Significant for multiple stress factors including tired, headache, blurred vision, chest pain, nausea, trouble sleeping, poor appetite, lack of interest in things, emotional lability. All other systems reviewed and turned to be negative. PHYSICAL EXAMINATION: GENERAL: When I saw her, this is a pleasant, middle-aged female. INITIAL VITAL SIGNS: Showed a blood pressure 141/86, pulse is 80 and regular, temperature 98.4 degrees Fahrenheit, oxygen saturation 98% on room air. HEENT: Head is without trauma. Pupils are reactive. Sclerae are nonicteric. Oropharynx is clear. NECK: Supple, no bruits identified. LUNGS: Otherwise clear. CARDIOVASCULAR: Showed regular heart tones. No gallops. LUNGS: Otherwise clear. ABDOMEN: Soft, nontender, no organomegaly. Bowel sounds are hypoactive. EXTREMITIES: Show no cyanosis or edema. NEUROLOGIC: Focally intact. Speech is fluent. Residential Sales intact. SKIN: Warm and dry. PERTINENT LABORATORY STUDIES: Her EKG was nondiagnostic. The hemoglobin is 13.2 g/dL with white count of 7100. The first set of cardiac enzymes were negative for coronary ischemia. Electrolytes are within normal range. Creatinine is 0.9 mg percent, nonfasting blood sugar 109. Transaminases and bilirubin were normal. Chest x-ray showed no acute cardiopulmonary process. ASSESSMENT: 1. A 59-year-old female with chest pain at rest. She has a strong family history of premature heart disease in her mom and sister. 2. Depression with anxiety. She is under quite a bit of stress with her being ill. 3. Hypertension. 4. History of depression with anxiety. PLAN: 1. Admit to the inpatient unit. 2. Telemetry monitoring. 3. Serial cardiac enzymes. 4. Cardiology consultation. They will see her later this morning. 5. Serial cardiac enzymes. DIANA BREAUX MD DR: TYSHAWN/romeo JOB#: [id number] / [id number]
[2020-02-01] MEDS: TOPIRAMATE 100 MG TABLET. PO SCH (09:29)
[2020-02-01] MEDS: MORPHINE SULFATE 2 MG/ML DISP.SYRIN. IVP PRN (09:29)
[2020-02-01 11:12] VITALS: BP 117/72
[2020-02-01] MEDS: PATCH REMOVAL. MC SCH (11:12)
--- NOTE | 2020-02-01 11:18 | DS ---
DATE OF DISCHARGE: 02/01/2020 ATTENDING PHYSICIAN: Dr. Breaux. FINAL DISCHARGE DIAGNOSES: 1. Chest pain, rule out myocardial infarction. 2. Increased anxiety. 3. Underlying depression. 4. Essential hypertension. HISTORY OF PRESENT ILLNESS: The patient is a very pleasant 59-year-old female admitted through the ED with substernal chest pain radiating to her left arm with paresthesias in the last 3 days. Pain is 8/10 in severity. She has not had a workup in the past. Her is in the hospital, he had a heart attack and stroke 3 weeks ago. Currently, at [facility]. She is a nonsmoker, but she has had a strong family history of heart disease, both her mom and sister had premature heart disease with MIs and coronary artery bypass and graft before the age of 50. Initial EKG was unremarkable. Three sets of cardiac enzymes were negative. She was seen in consultation by Cardiology services. PHYSICAL EXAMINATION: Please see the dictated note. PERTINENT LABORATORY AND X-RAY STUDIES: On this admission, her hemoglobin is 13.2 g/dL with a white count of 7100. Electrolytes, BUN and creatinine within normal range. Nonfasting blood sugar 109. Three sets of cardiac enzymes serially were negative for myocardial ischemia. COURSE IN THE HOSPITAL: The patient was seen in consultation by Cardiology services with her strong family history and symptom. They discussed with the patient rather than doing a stress test, they will go straight for a cardiac catheterization. Arrangements were then made on the second hospital day for the patient to be transferred to [facility] for cardiac catheterization. Her home meds are unchanged. She will continue her atorvastatin, BuSpar, Voltaren Gel, Benadryl p.r.n., loratadine, metformin 250 daily, Myrbetriq, Singulair, Protonix, Imitrex p.r.n., Topamax and trazodone, doses unchanged. The patient was sent by ambulance. She was discharged then in stable condition with explicit instructions and followup care to be transferred to [facility] for further cardiac evaluation. DIANA BREAUX MD DR: TYSHAWN/romeo JOB#: [id number] / [id number]
--- NOTE | 2020-02-01 13:12 | NUR ---
Pt discharged to transfer to [facility]. All belongings sent with pt. Pt left with transportation [facility]. Report given to Alyssa PADILLA at [facility] to room 208. Pt stable at this time.
[2020-02-01] MEDS ORDERED: NON FORMULARY ITEM (Mirabegron (Myrbetriq) 50 MG) PO SCH (21:00)
== END 2020-02-01 13:12 | disposition short-term general hospital (02) ==
LOC: ER 17:52 → 1 SOUTH 20:03
PROVIDERS: ADMIT Hospitalist; ATTEND Hospitalist
DX: R07.9 Chest pain, unspecified (principal); F41.8 Other specified anxiety disorders; I10 Essential (primary) hypertension; E78.5 Hyperlipidemia, unspecified; E11.9 Type 2 diabetes mellitus without complications; G47.33 Obstructive sleep apnea (adult) (pediatric)
CPT/HCPCS: 36415; 71045; 80053; 80061; 82550; 83690; 83735; 83880; 84443; 84484; 85025; 85379; 85610; 85730; 93005; 96374; 96375; 96376; 99285; G0378; J2270; J3010; Q0163; G0379

== ENCOUNTER → 2020-05-12 | Outpatient (CLI) | payer OTHER ==
[~2020-05-12] MED LIST changes: +ATOR40TA59 PO; +BUPR100T8 PO; +DICL100G18 TP; +DIPH25CA58 PO; +LORA10TA3 PO; +MIRA50TA PO; +MONT10TA80 PO; +RABE20TA26 PO; +SUMA100T3 PO; +TOPI100T8 PO; +TRAZ-120 PO
--- NOTE | 2020-05-12 14:36 | RAD ---
Cervical spine radiograph 05/12/2020 10:46 AM INDICATION: Neck pain COMPARISON: None available. TECHNIQUE: Lateral, AP view, Fuchs view and odontoid views of the cervical spine are provided. FINDINGS: The cervical spine is visualized from the craniocervical junction through the cervicothoracic junctio n. There is minimal anterolisthesis of C4 on C5 measuring 3 mm. No acute fracture is visualized. Bone mineralization is within normal limits. Disc heights are maintained. There is no prevertebral soft t issue swelling. No significant facet arthropathy. No significant uncovertebral joint disease. There i s no osseous spinal canal stenosis. The lateral masses of C1 articulate appropriately with the C2 rossy tebral body. IMPRESSION: No acute fracture of the cervical spine. 3 mm anterolisthesis of C4 on C5. Flexion-extension views could be of benefit. Electronically signed by: Lauren Plascencia MD (05/12/2020 2:33 PM) [id number]
== END ==
LOC: DXRAD 10:34
PROVIDERS: ATTEND Physician Assistant
DX: M43.12 Spondylolisthesis, cervical region (principal); M54.12 Radiculopathy, cervical region
CPT/HCPCS: 72040

== ENCOUNTER 2020-07-31 22:35 | Emergency (ER) | payer OTHER ==
[~2020-07-31] VITALS: Ht 162.6 cm; Wt 82.2 kg
[~2020-07-31 22:35] MED LIST changes: -RABE20TA26 PO; +RABE20TA29 PO
--- NOTE | 2020-07-31 22:46 | PHYS DOC ---
Past History Past Medical History: Anxiety, Arthritis, Hypertension, Other Past Surgical History: No Surgical History Smoking: Non-smoker Alcohol Use: None Drug Use: None General Adult HPI: HPI: ".. I worried I.. have a blood clott in this Rt. leg.. it up behind my thight.. .. it the pain not gone away..." Patient is a 59 year old female who presents with above hx and complaints right leg pain follows behind her right leg starting at popliteal area to hip area. Does not appear to be following the sciatic nerve. Patient does have history of recent evaluation for chest pain on 01/31/2020. At that time felt chest pain was not myocardial related but more relating to underlying anxiety, depression and hypertension. No recent travel. No specific ill contacts. No history of trauma. Has had problems of low back pain and sciatica in the past. Patient denies any recent history consistent with coagulopathy DVT issues but is on estrogen for vaginal dryness. Patient rates pain in her leg is 8 out of 10. Nothing makes the pain better. There is family history of heart disease with sister with MIs and are coronary artery bypass before age 50. Patient currently follows with cardiology outpatient as well as upstairs outpatient clinic. Patient does not smoke and denies illicit drug use. Review of Systems: Review of Systems: Constitutional: Denies fever or chills Eyes: Denies change in visual acuity HENT: Denies nasal congestion or sore throat Respiratory: Denies cough or shortness of breath Cardiovascular: Denies chest pain or edema GI: Denies abdominal pain, nausea, vomiting, bloody stools or diarrhea : Denies dysuria Musculoskeletal: Complains of right leg pain Integument: Denies rash Neurologic: Denies headache, focal weakness or sensory changes Endocrine: Denies polyuria or polydipsia Lymphatic: Denies swollen glands Psychiatric: Denies depression or anxiety Family History: Family History: Coronary artery disease with a sister who has had MIs and bypass Current Medications: Current Meds: See nursing for home meds Allergies: Allergies: Allergies Coded Allergies Type Severity Reaction Last Updated Verified aspirin Allergy Intermediate 01/31/20 Yes ondansetron Allergy Intermediate 01/31/20 Yes amoxicillin Allergy Unknown 01/22/16 No clavulanic acid Allergy Unknown 01/22/16 No tramadol Allergy Unknown 01/22/16 No Physical Exam: PE: Constitutional: Moderate acute distress, non-toxic appearance. [] HENT: Normocephalic, atraumatic, bilateral external ears normal, oropharynx moist, no oral exudates, nose normal. [] Eyes: PERRLA, EOMI, conjunctiva normal, no discharge. [] Neck: Normal range of motion, no tenderness, supple, no stridor. [] Cardiovascular:Heart rate regular rhythm, no murmur [] Lungs & Thorax: Bilateral breath sounds well at apex on auscultation [] Abdomen: Bowel sounds normal, soft, no tenderness, no masses, no pulsatile masses. [] Skin: Warm, dry, no erythema, no rash. [] Back: No tenderness, no CVA tenderness. [] Extremities: Right thigh tenderness, no cyanosis, no clubbing, ROM intact, no edema. No true cording appreciated Neurologic: Alert and oriented X 3, normal motor function, normal sensory function, no focal deficits noted. [] Psychologic: Affect anxious, judgement normal, mood normal. [] EKG: EKG: My interpretation EKG shows a sinus rhythm at [address] changes. But no findings acute STEMI with contralateral changes. There is inverted T waves in V45 and 6. [] Radiology/Procedures: Radiology/Procedures: [][place] [address] IMAGING REPORT Signed PATIENT: FREDY DELAROSA AACCOUNT: [id number] : 1960 LOCATION: ER AGE: 59 SEX: F EXAM STATUS: REG ER ORD. PHYSICIAN: SONIDO SANABRIA MD REASON: eval dvt Rt. - pain, PROCEDURE: VENOUS LOWER EXTREMITY RIGHT Exam: US DPLX VENOUS EXTREMITY LOWER RT Indication: Reason: eval dvt Rt. - pain, / Spl. Instructions: / History: Technique: Color-flow and pulsed wave duplex ultrasound with compression of venous structures of the right lower extremity. Comparison: None Available. Findings: Duplex ultrasound with compression of the deep venous structures of the right lower extremity from the common femoral vein through the popliteal vein is negative for DVT. The posterior tibial and peroneal veins are segmentally visualized and patent where seen. Normal venous waveforms and augmentation are noted throughout. Impression: No evidence for DVT in the right lower extremity. Electronically signed by: Sarah Gonzalez MD (08/01/2020 4:05 AM) [facility] DICTATED AND SIGNED BY: SARAH GONZALEZ MD DATE: 08/01/20 0403 CC: SONIDO SANABRIA MD; PCP,UNKNOWN ~MTH0 [address] [place] [address] IMAGING REPORT Signed PATIENT: FREDY DELAROSA AACCOUNT: [id number] : 1960 LOCATION: ER AGE: 59 SEX: F EXAM STATUS: REG ER ORD. PHYSICIAN: SONIDO SANABRIA MD REASON: DYSPNEA PROCEDURE: PORTABLE CHEST 1V XR CHEST 1V INDICATION: Reason: DYSPNEA / Spl. Instructions: / History: . COMPARISON STUDY: None. FINDINGS: Lungs: Normal lung volume. No pulmonary mass or consolidation. The tracheobronchial tree and hilar structures are normal. Pleura: No pleural effusion or pneumothorax. Heart and Mediastinum: The cardiomediastinal silhouette is normal. The great vessels of the thorax are normal. IMPRESSION: No acute cardiopulmonary process. Electronically signed by: Sarah Gonzalez MD (08/01/2020 1:48 AM) [facility] DICTATED AND SIGNED BY: SARAH GONZALEZ MD DATE: 08/01/20 0148 CC: SONIDO SANABRIA MD; PCP,UNKNOWN ~MTH0 0 Heart Score: C/O Chest Pain: N/A HEART Score for Chest Pain: HEART Score for Chest Pain Response (Comments) Value History Moderately Suspicious 1 ECG Nonspecific Repolarizatio 1 Age >45 - < 65 1 Risk Factors 1 or 2 Risk Factors 1 Troponin < Normal Limit 0 Total 4 Risk Factors: Risk Factors: DM, Current or recent (<one month) smoker, HTN, HLP, family history of CAD, obesity. Risk Scores: Score 0 - 3: 2.5% MACE over next 6 weeks - Discharge Home Score 4 - 6: 20.3% MACE over next 6 weeks - Admit for Clinical Observation Score 7 - 10: 72.7% MACE over next 6 weeks - Early Invasive Strategies Course & Med Decision Making: Course & Med Decision Making Pertinent Labs and Imaging studies reviewed. (See chart for details) Patient taken daily aspirin. Patient follow-up primary care. Patient keep follow-ups with cardiology as well as primary. Take hypertensive meds as previous directed. Have primary review ED work-up labs and pending labs. Impression: 1. Rt., Leg Pain 2. Hx HTN 3. Mild Elevation of D-dimer 0.58 4. Elevated Creat. 1.1 [] Dragon Disclaimer: Dragon Disclaimer: This electronic medical record was generated, in whole or in part, using a voice recognition dictation system. Departure Departure: Referrals: PCP,UNKNOWN (PCP) Calderon Disclaimer This chart was dictated in whole or in part using Voice Recognition software in a busy, high-work load, and often noisy Emergency Department environment. It may contain unintended and wholly unrecognized errors or omissions. SONIDO SANABRIA MD Jul 31, 2020 22:46
[2020-08-01 00:05] LABS: BASO # 0.1 x10^3/uL (0.0-0.2); BASO % 1 % (0-3); EOS # 0.1 x10^3/uL (0.0-0.7); EOS % 1 % (0-3); HEMATOCRIT 39.4 % (36.0-47.0); HEMOGLOBIN 13.5 g/dL (12.0-15.5); LYMPH # 3.8 x10^3/uL (1.0-4.8); LYMPH % 38 % (24-48); MEAN CORPUSCULAR HEMOGLOBIN 31 pg (25-35); MEAN CORPUSCULAR HGB CONC 34 g/dL (31-37); MEAN CORPUSCULAR VOLUME 90 fL (79-100); MONO # 0.8 x10^3/uL (0.0-1.1); MONO % 8 % (0-9); NEUT # 5.3 x10^3uL (1.8-7.7); NEUT % 53 % (31-73); PLATELET COUNT 357 x10^3/uL (140-400); RED BLOOD COUNT 4.39 x10^6/uL (3.50-5.40); RED CELL DISTRIBUTION WIDTH 12.7 % (11.5-14.5); WHITE BLOOD COUNT 10.1 x10^3/uL (4.0-11.0)
[2020-08-01 00:24] LABS: CALCIUM 9.6 mg/dL (8.5-10.1); CREATININE 1.1 mg/dL (0.6-1.0); GFR 61.1; POTASSIUM 3.9 mmol/L (3.5-5.1)
[2020-08-01 00:33] LABS: ALBUMIN 3.7 g/dL (3.4-5.0); DIRECT BILIRUBIN 0.1 mg/dL (0.0-0.2); MAGNESIUM 2.1 mg/dL (1.8-2.4); TOTAL BILIRUBIN 0.2 mg/dL (0.2-1.0); TOTAL PROTEIN 7.3 g/dL (6.4-8.2)
--- NOTE | 2020-08-01 01:50 | RAD ---
XR CHEST 1V INDICATION: Reason: DYSPNEA / Spl. Instructions: / History: . COMPARISON STUDY: None. FINDINGS: Lungs: Normal lung volume. No pulmonary mass or consolidation. The tracheobronchial tree and hilar st ructures are normal. Pleura: No pleural effusion or pneumothorax. Heart and Mediastinum: The cardiomediastinal silhouette is normal. The great vessels of the thorax ar e normal. IMPRESSION: No acute cardiopulmonary process. Electronically signed by: Porfirio Cleaning MD (08/01/2020 1:48 AM) [facility]
[2020-08-01] MEDS: IV RINGERS SOLUTION,LACTATED 1,000 ML IV SCH ×2 (01:52→04:20)
[2020-08-01] MEDS ORDERED: APIXABAN 5 MG TABLET. PO SCH (02:00)
--- NOTE | 2020-08-01 03:52 | EKG ---
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
--- NOTE | 2020-08-01 04:07 | RAD ---
Exam: US DPLX VENOUS EXTREMITY LOWER RT Indication: Reason: eval dvt Rt. - pain, / Spl. Instructions: / History: Technique: Color-flow and pulsed wave duplex ultrasound with compression of venous structures of th e right lower extremity. Comparison: None Available. Findings: Duplex ultrasound with compression of the deep venous structures of the right lower extremi ty from the common femoral vein through the popliteal vein is negative for DVT. The posterior tibial and peroneal veins are segmentally visualized and patent where seen. Normal venous waveforms and augm entation are noted throughout. Impression: No evidence for DVT in the right lower extremity. Electronically signed by: Porfirio Cleaning MD (08/01/2020 4:05 AM) JOESPH
[2020-08-01 04:55] VITALS: BP 158/90
== END 2020-08-01 04:58 | disposition home or self-care (01) ==
LOC: ER 22:35
DX: M79.604 Pain in right leg (principal); R07.89 Other chest pain; R79.89 Other specified abnormal findings of blood chemistry; I10 Essential (primary) hypertension; F41.9 Anxiety disorder, unspecified; M19.90 Unspecified osteoarthritis, unspecified site; Z88.1 Allergy status to other antibiotic agents; Z88.8 Allergy status to other drugs, medicaments and biological substances
CPT/HCPCS: 36415; 71045; 80048; 80076; 82550; 83690; 83735; 83880; 84443; 84484; 85025; 85379; 85610; 85730; 93005; 93971; 99285